=== PATIENT | female | born 1945 | race Caucasian/White ===

== ENCOUNTER 2018-06-24 20:53 | Observation (INO) ==
[2018-06-24 21:30] LABS: INFLUENZA A NEGATIVE (NEGATIVE); INFLUENZA B NEGATIVE (NEGATIVE)
[2018-06-24] MEDS ORDERED: NS 1,000 ML IV ONE (22:11)
[2018-06-24 22:59] LABS: BASO# 0.02 X1000 (0.0-0.2); BASO% 0.2 % (0.0-0.8); EOS# 0.04 X1000 (0.0-0.7); EOS% 0.4 % (0.0-10.0); HEMATOCRIT 39.4 % (37.0-47.0); HEMOGLOBIN 13.8 g/dL (12.0-16.0); IMM GRAN# 0.03 X1000 (0.0-0.04); IMM GRAN% 0.3 % (0.0-0.5); LYMPH% 8.8 % (20.5-51.1); MCH 30.6 PG (27-31); MCV 87.4 FL (81-99); MONO% 7.8 % (1.7-9.3); MPV 9.4 FL (7.4-10.4); NEUT# 8.46 X1000 (1.4-6.5); NEUT% 82.5 % (42.2-75.2); PLT 223 X1000 (130-400); RBC 4.51 XMIL (4.2-5.4); RDW 15.5 % (11.5-14.5); WBC 10.25 X1000 (4.8-10.8)
[2018-06-24 23:23] LABS: AGAP 16; ALBUMIN 3.7 g/dL (3.5-5.0); ALKALINE PHOSPHATASE 81 U/L (32-104); BUN 9 mg/dL (8-22); CALCIUM 8.5 mg/dL (8.8-10.2); CHLORIDE 91 mmol/L (98-107); COSMO 254; CREATININE 0.6 mg/dL (0.5-0.9); ESTIMATED GFR > 60; GLUCOSE 129 mg/dL (70-104); GOT 16 U/L (10-30); GPT < 5 U/L (10-36); POTASSIUM 4.1 mmol/L (3.5-5.1); SODIUM 126 mmol/L (136-145); TCO2 19 mmol/L (25-35); TOTAL PROTEIN 6.8 g/dL (6.3-8.3)
[2018-06-24 23:24] LABS: URINE SOURCE CATH
[2018-06-24 23:25] LABS: BILIRUBIN URINE NEGATIVE (NEGATIVE); BLOOD URINE NEGATIVE (NEGATIVE); CLARITY CLEAR (CLEAR); COLOR YELLOW; GLUCOSE URINE NEGATIVE (NEGATIVE); KETONE URINE 1+(Small) mg/dL (NEGATIVE); LEUKOCYTES URINE TRACE (NEGATIVE); NITRITE URINE NEGATIVE (NEGATIVE); PROTEIN URINE NEGATIVE (NEGATIVE); URINE BACTERIA 1+ /HFP; URINE EPITHELIAL CELLS <10 /HPF (<10); URINE RBC <10 /HPF (<10); URINE WBC <10 /HPF (<10); UROBILINOGEN URINE NORMAL
[2018-06-25] MEDS ORDERED: KENALOG 0.1% OINTMENT TOP ONE (01:05)
[2018-06-25] MEDS ORDERED: ZOFRAN IV PRN (01:09)
[2018-06-25] MEDS ORDERED: TYLENOL PO PRN (01:09)
[2018-06-25] MEDS ORDERED: NS 1,000 ML IV ONE (01:11)
--- NOTE | 2018-06-25 01:14 | PROVIDER DOCUMENTATION ---
This chart was entered by Shayy Dutta Scribe, acting as scribe for Patrice Sinclair MD. HPI-Syncope/Dizziness - General Chief Complaint: Near Syncope Stated Complaint: FEVER, SHAKES Time Seen by Provider: 06/24/18 21:23 Source: patient, family Allergies/Adverse Reactions: Patient Allergies Allergy/AdvReac Type Severity Reaction Status Date / Time No Known Allergies Allergy Verified 06/24/18 21:02 - History of Present Illness-Syncope/Dizzy Nature of Presenting Problem: pt is a 73 yr old female presenting with complaint of weakness, dizziness and near syncope. pt reports pt became very hot and sweaty to touch during event, upon arrival pt reports weakness/fatigue but denies any other complaint. pt tremulous throughout exam, family states pt has medication induced tremors. Recently Seen Here or By Another Healthcare Provider: No - Dizziness Severity in ED: reports: moderate Dizziness Related Current/Associated Symptoms: reports: weakness, lightheaded, dizzy, other (hot, diaphoretic) Any recent trauma/injury?: reports: none Modifying Factors: improves with: nothing Patient usually:: reports: uses a walker Review of Systems - Adult - REVIEW OF SYSTEMS - ADULT Constitutional: reports: fatique Eyes: denies: blurred vision, double vision Ears, Nose, Mouth & Throat: reports: no symptoms reported Cardiovascular: denies: chest pain, palpitations, syncope Respiratory: denies: cough, shortness of breath Gastrointestinal: denies: nausea, vomiting Genitourinary: reports: no symptoms reported Musculoskeletal: reports: no symptoms reported, muscle weakness Integumentary: reports: no symptoms reported Neurological: reports: dizziness/vertigo. denies: headache/migraines, numbness Psychiatric: reports: no symptoms reported Endocrine: reports: no symptoms reported Hematologic/Lymphatic: reports: no symptoms reported Allergic/Immunologic: reports: no symptoms reported All Other Systems: Reviewed and Negative Past History - Adult - PAST MEDICAL HISTORY-ADULT Review of Records: reports: Old Records Reviewed, Nursing Assessment Review, Medications Reviewed, Social history reviewed & non-contributory. Major Childhood Illnesses: reports: denies history Cardiovascular: reports: denies history Respiratory: reports: denies history Gastrointestinal: reports: denies history Obstetrical/Gynecological: reports: denies history Genitourinary: reports: denies history Musculoskeletal: reports: arthritis Neurological: reports: CVA Endocrine/Immune: reports: denies history Other Conditions: reports: denies history - PRIOR SURGERIES/PROCEDURES Surgical/Procedure History: reports: none - IMMUNIZATION STATUS Childhood Immunizations: See Nurse Assessment Flu Vaccine: See Nurse Assessment - FAMILY HISTORY Family History: reviewed, not pertinent - SOCIAL HISTORY Smoking: non-smoker Substance Use: denies Living Situation: family Physical Exam-General - PHYSICAL EXAM-ADULT Initial Vital Signs Reviewed: Yes - CONSTITUTIONAL General Appearance: alert, no apparent distress, other (tremulous) - EYES Eyes: PERRL/EOMI - HEAD, EARS, NOSE, MOUTH & THROAT HENMT: normocephalic/atraumatic, moist mucous membranes, normal ENT inspection - NECK Neck: non-tender, full range of motion, supple, normal inspection - RESPIRATORY Respiratory: chest non-tender, lungs clear, normal breath sounds - CARDIOVASCULAR Cardiovascular: normal peripheral pulses, no edema, tachycardia - GASTROINTESTINAL (ABDOMEN) Abdominal Exam: normal bowel sounds, non tender, soft - LYMPHATIC Lymphatic: no adenopathy - MUSCULOSKELETAL Back Exam: normal inspection, no CVA tenderness, no vertebral tenderness Extremity: normal range of motion, non-tender, normal gait, normal inspection - SKIN Integumentary: normal color, normal turgor, warm/dry - NEUROLOGIC Neurologic: grossly normal, no motor/sensory deficits - PSYCHIATRIC Psych/Mental Status: normal mood/affect Progress - PLAN OF CARE/RESULTS Progress/Plan/Lab Results: Vital Signs - 8 hr 06/24/18 20:57 06/24/18 21:40 06/24/18 21:51 Temperature 98.3 F Pulse Rate 129 H 118 H 117 H Respiratory Rate 20 17 20 Blood Pressure 129/56 132/96 O2 Sat by Pulse Oximetry 98 100 06/25/18 00:07 06/25/18 00:41 Temperature Pulse Rate 110 H 109 H Respiratory Rate 17 Blood Pressure 130/70 135/83 O2 Sat by Pulse Oximetry 97 100 Laboratory Results - last 24 hr 06/24/18 06/24/18 06/24/18 21:03 21:10 22:40 WBC RBC Hgb Hct MCV MCH MCHC RDW Std Deviation Plt Count MPV Immature Gran % (Auto) Neut % (Auto) Lymph % (Auto) Screven % (Auto) Eos % (Auto) Baso % (Auto) Immature Gran # (Auto) Neut # (Auto) Lymph # (Auto) Screven # (Auto) Eos # (Auto) Baso # (Auto) Sodium Potassium Chloride Carbon Dioxide Anion Gap BUN Creatinine Estimated GFR/1.73 m2 BUN/Creatinine Ratio Glucose POC Glucose 129 H Calculated Osmolality Calcium Total Bilirubin AST ALT Alkaline Phosphatase Total Protein Albumin Globulin Albumin/Globulin Ratio Urine Source Cancelled Urine Color Cancelled Urine Clarity Urine Turbidity Cancelled Urine pH Cancelled Ur Specific Gulliver Cancelled Urine Protein Cancelled Ur Glucose (Stick) Cancelled Urine Ketones Ur Ketones (Stick) Cancelled Urine Blood Cancelled Urine Nitrite Cancelled Urine Bilirubin Cancelled Urine Urobilinogen Urobilinogen Dipstick Cancelled Urine Leukocytes Cancelled Urine WBC (Auto) Cancelled Urine RBC (Auto) Cancelled U Epithel Cells (Auto) Cancelled Urine Bacteria (Auto) Cancelled Urine Microscopic RBC Urine WBC Urine Microscopic WBC Ur Epithelial Cells Urine Bacteria Urine Glucose Influenza A (Rapid) NEGATIVE Influenza B (Rapid) NEGATIVE 06/24/18 06/24/18 06/24/18 22:40 22:44 22:44 WBC 10.25 RBC 4.51 Hgb 13.8 Hct 39.4 MCV 87.4 MCH 30.6 MCHC 35.0 RDW Std Deviation 15.5 H Plt Count 223 MPV 9.4 Immature Gran % (Auto) 0.3 Neut % (Auto) 82.5 H Lymph % (Auto) 8.8 L Screven % (Auto) 7.8 Eos % (Auto) 0.4 Baso % (Auto) 0.2 Immature Gran # (Auto) 0.03 Neut # (Auto) 8.46 H Lymph # (Auto) 0.90 L Screven # (Auto) 0.80 H Eos # (Auto) 0.04 Baso # (Auto) 0.02 Sodium 126 L Potassium 4.1 Chloride 91 L Carbon Dioxide 19 L Anion Gap 16 BUN 9 Creatinine 0.6 Estimated GFR/1.73 m2 > 60 BUN/Creatinine Ratio 15 Glucose 129 H POC Glucose Calculated Osmolality 254 Calcium 8.5 L Total Bilirubin 0.30 AST 16 ALT < 5 L Alkaline Phosphatase 81 Total Protein 6.8 Albumin 3.7 Globulin 3.0 Albumin/Globulin Ratio 1.0 Urine Source CATH Urine Color YELLOW Urine Clarity CLEAR Urine Turbidity Urine pH 9.0 Ur Specific Gulliver 1.010 Urine Protein NEGATIVE Ur Glucose (Stick) Urine Ketones 1+(Small) A Ur Ketones (Stick) Urine Blood NEGATIVE Urine Nitrite NEGATIVE Urine Bilirubin NEGATIVE Urine Urobilinogen NORMAL Urobilinogen Dipstick Urine Leukocytes Urine WBC (Auto) Urine RBC (Auto) U Epithel Cells (Auto) Urine Bacteria (Auto) Urine Microscopic RBC <10 Urine WBC TRACE A Urine Microscopic WBC <10 Ur Epithelial Cells <10 Urine Bacteria 1+ Urine Glucose NEGATIVE Influenza A (Rapid) Influenza B (Rapid) Orders Category Date Time Status Admit - [facility] Routine AdmDCTranf 06/25/18 01:09 Active Activity - Bed Rest with BRP ORDERED Care 06/25/18 01:09 Active Call Admitting on Arrival AT ADMISSION Care 06/25/18 01:10 Active Neurological Check Q6H Care 06/25/18 01:09 Active Saline Loc NOW Care 06/24/18 22:12 Active Vital Signs Order ROUTINE Care 06/25/18 01:09 Active Heart Healthy Diet Diet 06/25/18 01:10 Active CHEST-2 VIEWS [RAD] Stat Exams 06/24/18 22:[address] HEAD W/O CONTRAST [CT] Stat Exams 06/24/18 22:12 Taken CBC WITH ELECTRONIC DIFF [HEME] Stat Lab 06/24/18 22:44 Completed COMPREHENSIVE METABOLIC PANEL [CHEM] Stat Lab 06/24/18 22:[address] Stat Lab 06/24/18 21:[address] W/POSS RFLX CULT [URINALYSIS] Stat Lab 06/24/18 22:40 Completed URINE CULTURE [RM] Routine Lab 06/24/18 23:26 Ordered 0.9% Sodium Chloride Inj [Ns] 1,000 ml Med 06/25/18 01:11 Active IV 75 mls/hr 0.9% Sodium Chloride Inj [Ns] 1,000 ml Med 06/24/18 22:11 Discontinued IV 999 mls/hr Acetaminophen [Tylenol] Med 06/25/18 01:09 Ordered 650 mg PO Q6H PRN PRN Ondansetron [Zofran] Med 06/25/18 01:09 Ordered 4 mg IV Q4H PRN PRN Triamcinolone 0.1% Oint [Kenalog 0.1% Ointment] Med 06/25/18 01:05 Discontinued 2 gm TOP NOW ONE EKG [EKG] Stat Ther 06/24/18 22:12 Ordered Transfer/Admit Order [TRANSFER] Routine Transfer 06/25/18 01:11 Ordered A/P: hyponatremia and weakness. Will admit to hospitalist service. started NS @ 75 mL hr Result Diagrams: 06/24/18 22:44 06/24/18 22:44 - CONSULTS/PCP/HOSPITALIST Notification #1 *Consult/PCP/Hospitalist*: Dr ríos was called 3 times no answer Time Discussed: 01:14 Consult Disposition: Admit Departure - Departure Date of Disposition Decision: 06/25/18 Time of Disposition Decision: 01:13 DIAGNOSIS: Hyponatremia, Weakness Disposition: ADMITTED INPATIENT 09 Certified Medical Emergency: Emergent Condition: Stable Additional Freetext Instructions: We have examined and treated you today on an emergency basis only. This was not a substitute for, or an effort to provide, complete medical care. In most cases , you must let your doctor check you again. Tell your doctor about any new or lasting problems. We cannot recognize and treat all injuries or illnesses in one Emergency Department visit. If you had special tests, such as X-rays or CT scans, will be reviewed by radiologist and will call you if there are any new suggestions Follow up with primary care provider in 1 to 2 days if no improvement. If you do not have a primary care provider, you need to choose one as soon as possible. Take medicines as prescribed. Monitor for any side effects or adverse events from medications. If any side effect, adverse event or rash develops, or if you suspect any other adverse reaction to the medication, then discontinue the medication immediately and contact clinic /PCP or go to the nearest ER. Narcotic meds / sedative meds instruction - patent advised not to drive, operate any machinery or go into water after taking meds as it may impair mental ability to react to the situation in an appropriate manner. Continue other current medicines. Follow up with PCP within 24-48 hours, or sooner if symptoms worsen or fail to improve. Patient / guardian verbalizes understanding of treatment plan, medication, and side effects and agrees with treatment plan. Patient leaves ER in stable condition and ambulatory state. Return to ER as needed. Discharge instructions reviewed verbally and given to patient in written form. Follow up with primary Referrals and Follow-Ups: Jaci Britt MD [Primary Care Provider] - - Critical Care Note This patient required my direct & personal management of CC.: No Attestation - Physician/ SUSAN Attestation Patient care was provided by Advanced Practice Provider:: No The physician spent face to face time with patient:: Yes Advanced Practice Provider documentation review:: Supervising physician onsite and consulted in the evaluation and care of this patient. The physician did have a face to face encounter with the patient. This chart was documented by the indicated scribe, (Shayy Dutta, Tammie) and accurately reflects the services I performed and decisions made by me, Patrice Sinclair MD, as attested by the provider's signature.
[2018-06-25] MEDS ORDERED: NS 1,000 ML IV SCH (02:44)
--- NOTE | 2018-06-25 07:36 | Diag Imaging Result Doc PS360 ---
CT HEAD W/O CONTRAST - 06/24/2018 INDICATION: syncope COMPARISON: None FINDINGS: There is extensive patient motion artifact. The ventricles and sulci are normal in size and contour. No intracranial mass or hemorrhage. There is advanced periventricular white matter chronic microvascular disease. The skull is intact. The sinuses, mastoids, and middle ears are clear. IMPRESSION: Advanced cerebral white matter chronic microvascular disease. No acute process. This exam was performed using automated exposure control, adjustment of mA or kV according to patient size, and/or use of iterative reconstruction technique Electronically signed by Lloyd Pacheco 06/25/2018 7:34 AM
[2018-06-25 08:00] LABS: AGAP 13; BUN 6 mg/dL (8-22); CALCIUM 8.2 mg/dL (8.8-10.2); CHLORIDE 100 mmol/L (98-107); COSMO 267; CREATININE 0.4 mg/dL (0.5-0.9); ESTIMATED GFR > 60; GLUCOSE 89 mg/dL (70-104); SODIUM 135 mmol/L (136-145); TCO2 23 mmol/L (25-35)
--- NOTE | 2018-06-25 08:37 | Diag Imaging Result Doc PS360 ---
EXAM: CHEST-2 VIEWS HISTORY: Syncope TECHNIQUE: PA and Lateral chest x-ray COMPARISON: None. FINDINGS: The cardiomediastinal silhouette is within normal limits. The pulmonary vasculature is not congested. No infiltrate, effusion, or pneumothorax is appreciated. There are prominent interstitial markings and evidence of prior granulomatous disease. There is a cartilaginous lesion proximal right humerus. There is thoracic spondylosis. IMPRESSION: Prominent interstitial markings bilaterally with evidence of prior granulomatous disease. Electronically signed by Jodi House 06/25/2018 8:35 AM
[2018-06-25 12:47] LABS: AGAP 10; BUN 7 mg/dL (8-22); CALCIUM 7.9 mg/dL (8.8-10.2); CHLORIDE 100 mmol/L (98-107); COSMO 262; CREATININE 0.3 mg/dL (0.5-0.9); ESTIMATED GFR > 60; GLUCOSE 94 mg/dL (70-104); POTASSIUM 3.7 mmol/L (3.5-5.1); SODIUM 132 mmol/L (136-145); TCO2 22 mmol/L (25-35)
[2018-06-25] MEDS: NORCO-7.5 PO SCH ×2 (13:04→21:58)
[2018-06-25] MEDS: KLOR-CON PO SCH (13:05)
[2018-06-25] MEDS: NAMENDA PO SCH (13:05)
[2018-06-25] MEDS: DEPAKOTE SPRINKLE PO SCH ×2 (13:05→16:09)
[2018-06-25] MEDS: MYSOLINE PO SCH ×2 (13:05→21:58)
[2018-06-25] MEDS: ARICEPT PO SCH (13:05)
--- NOTE | 2018-06-25 15:16 | HISTORY AND PHYSICAL ---
PRIMARY CARE PHYSICIAN: Dr. Britt. CHIEF COMPLAINT: Dizziness, weakness, fatigue, and near syncope. HISTORY OF PRESENTING ILLNESS: This is a 73-year-old female who presents to [facility] ER with family stating that she had had increased weakness, dizziness, fatigue, and had been diaphoretic and had a near syncopal episode at home. Her workup in the emergency room showed sodium of 126. Influenza A and B were both negative. She was afebrile. Chest x-ray showed some prominent interstitial markings bilaterally with evidence of a prior granulomatous disease. CT of the head showed advanced cerebral white matter, chronic microvascular disease but no acute process. She states that she saw her primary care physician about a month ago, and that they changed her Lasix from daily to every other day, but she will be admitted for further evaluation and treatment. PAST MEDICAL HISTORY: CVA that caused some memory deficits also, but no other medical issues. PAST SURGICAL HISTORY: Bilateral knee arthroscopy. FAMILY HISTORY: Reviewed and noncontributory. SOCIAL HISTORY: She currently lives with family. Denies any tobacco, alcohol or illicit drug use. ALLERGIES: She has no known drug allergies. HOME MEDICATIONS: We will hold the following: Lasix 20 mg p.o. every other day and methotrexate IM as directed. We will continue her divalproex sodium 125 mg p.o. t.i.d., donepezil 5 mg p.o. every morning, Krypton 7.5 one p.o. b.i.d., Namenda 10 mg p.o. daily, mirtazapine 45 mg p.o. at bedtime, olanzapine 5 mg p.o. at bedtime, potassium 10 mEq p.o. daily, and Mysoline 50 mg p.o. b.i.d. LABORATORY DATA: White blood cell count of 10.25, hemoglobin of 13.8, hematocrit 39.4, and platelets 223,000. Sodium was 126, potassium 4.1, chloride 91, CO2 19, BUN of 9, creatinine 0.6, and glucose 129. This morning her sodium is up to 135. Urinalysis was negative except for 1+ bacteria. Urine osmolality at 465. Urine random sodium at 77. Valproic acid level was 31.70. Influenza A and B were both negative. Chest x-ray showed prominent interstitial markings bilaterally with evidence of prior granulomatous disease. CT of the head showed advanced cerebral white matter, chronic microvascular disease but no acute process. REVIEW OF SYSTEMS: She denied any fever, chills, or blurred vision. She was positive for dizziness, weakness, fatigue, diaphoresis, and near syncopal episode. She denied any chest pain, coughing, or shortness of breath. She denied any abdominal pain, constipation, diarrhea, burning or hurting with urination. PHYSICAL EXAMINATION: VITAL SIGNS: On arrival, she had temperature of 98.3 degrees, pulse 129, respirations 20, blood pressure 129/56, and saturating 98% on room air. GENERAL: This is a 73-year-old female who is lying in the bed. She is noted to have a tremor to her bilateral upper extremities, but answers all questions appropriately. HEENT: Normocephalic, atraumatic. Normal ENT inspection. Oropharynx and nares are clear. EYES: Pupils are equal, round, and reactive to light and accommodation. Extraocular movements are intact. NECK: Normal inspection. Normal range of motion. LUNGS: Clear to auscultation bilaterally with equal lung expansion and chest wall movement. HEART: Regular rate and rhythm. No murmurs, rubs, or gallops. ABDOMEN: Soft, nontender, and nondistended. Bowel sounds are present x4 quadrants. MUSCULOSKELETAL: She has 5/5 strength x4 extremities. Again, she is noted to have tremors to bilateral upper extremities. NEUROLOGICAL: The cranial nerves 2-12 appear grossly intact. ASSESSMENT: 1. Hyponatremia. 2. Generalized weakness secondary to #1. PLAN: She was admitted to the medical unit and placed on neuro checks q.6 hours for 24 hours, and placed on telemetry healthy heart diet. We checked the urine sodium and urine osmolality. We will hold her diuretic, and continue her other medications. She was receiving normal saline at 75 mL an hour, but we have stopped that now that her sodium has returned to normal limits. Further orders after being seen by attending. Dictated by DAVID Merlos for Jeffery Parker MD cc: MD Babs Ames CRNP Alexis R. Penot, MD
--- NOTE | 2018-06-25 19:18 | HISTORY AND PHYSICAL ---
ADDENDUM: Patient presented with confusion. She also had a low sodium. She had very hot and sweaty, she had weakness, dizziness. Her sodium when she first came in was 126, checked later that morning was 135, repeat is 132. Her exam is unremarkable except for some shaking tremulousness, which I think is at her baseline. She does have dementia although I do not think the family is completely cognizant of that. I guess she has been controlled on medications. I guess they feel that it has been cured but any ways she was admitted. She is doing better. We are going to watch her, rule out CHF check a TSH level, cortisol level and follow closely. I think this is likely related to diuretic, I will check urine electrolytes and follow closely. DISPOSITION: Pending her clinical status. This is a [id number] encounter note with Babs Ramirez. cc: Jeffery Parker MD
[2018-06-25] MEDS ORDERED: ZYPREXA PO SCH (21:00)
[2018-06-25] MEDS ORDERED: REMERON PO SCH (21:00)
[2018-06-26 07:37] LABS: AGAP 11; BUN 7 mg/dL (8-22); CALCIUM 7.9 mg/dL (8.8-10.2); CHLORIDE 101 mmol/L (98-107); COSMO 265; CREATININE 0.4 mg/dL (0.5-0.9); ESTIMATED GFR > 60; GLUCOSE 82 mg/dL (70-104); SODIUM 134 mmol/L (136-145); TCO2 22 mmol/L (25-35)
[2018-06-26 07:42] LABS: BASO# 0.02 X1000 (0.0-0.2); BASO% 0.4 % (0.0-0.8); EOS% 6.7 % (0.0-10.0); HEMATOCRIT 37.3 % (37.0-47.0); HEMOGLOBIN 12.3 g/dL (12.0-16.0); LYMPH# 0.88 X1000 (1.2-3.4); LYMPH% 19.8 % (20.5-51.1); MCH 30.5 PG (27-31); MCV 92.6 FL (81-99); MONO# 0.96 X1000 (0.11-0.59); MONO% 21.6 % (1.7-9.3); MPV 10.1 FL (7.4-10.4); NEUT# 2.29 X1000 (1.4-6.5); NEUT% 51.5 % (42.2-75.2); PLT 163 X1000 (130-400); RBC 4.03 XMIL (4.2-5.4); RDW 16.4 % (11.5-14.5); WBC 4.45 X1000 (4.8-10.8)
[2018-06-26 08:16] LABS: EOS 2 % (1-10); LYMPHS 32 % (21-51); MONO 9 % (1-9); SEGS 57 % (42-75)
[2018-06-26] MEDS: DEPAKOTE SPRINKLE PO SCH ×2 (10:16→13:33)
[2018-06-26] MEDS: ARICEPT PO SCH (10:17)
[2018-06-26] MEDS: KLOR-CON PO SCH (10:17)
[2018-06-26] MEDS: MYSOLINE PO SCH (10:17)
[2018-06-26] MEDS: NAMENDA PO SCH (10:17)
[2018-06-26] MEDS: NORCO-7.5 PO SCH (10:17)
--- NOTE | 2018-06-26 13:43 | ECHO REPORT ---
ORDER DATE: 06/25/2018 REASON FOR THIS STUDY: CHF. REQUESTING PHYSICIAN: Jeffery Parker MD - Hospitalist. INTERPRETING PHYSICIAN: Conrado Schwartz MD M-MODE MEASUREMENTS: Left ventricle end diastole: 4.2 cm. Left ventricle end systole: 2.6 cm. Posterior wall: 1.2 cm. Interventricular septum: 1.2 cm. Left atrium: 3.6 cm. Aortic root: 3.1 cm. SUMMARY OF 2-DIMENSIONAL IMAGIN. The left ventricular function is normal with an ejection fraction of 66%. There is no wall motion abnormality. 2. The aortic valve shows sclerosis of the cusp without stenosis. Color flow mapping is unremarkable. 3. The mitral annulus shows moderate calcification. Color flow mapping is unremarkable. 4. Pulse wave Doppler of mitral inflow shows reversal of the E and the A ratio. Ratio is 0.7. 5. Tissue Doppler of septal and lateral mitral annulus averages 5 cm. 6. There is impaired left ventricular relaxation. 7. The pulmonary venous flow is normal. 8. The tricuspid valve is unremarkable. 9. The pulmonary pressure is estimated at 28 mmHg. 10.The inferior vena cava is not dilated. 11.The pulmonic valve is normal. 12.The atria show mild enlargement of the left atrium. Otherwise, unremarkable. 13.There is no pericardial effusion and no sign of thrombus. Clinical correlation is recommended. cc: MD Jeffery Solo MD
[2018-06-26 14:30] VITALS: BP 111/75
--- NOTE | 2018-06-26 21:11 | DISCHARGE SUMMARY ---
ADMISSION DATE: 06/25/2018 DISCHARGE DATE: 06/26/2018 DISCHARGE DIAGNOSIS: Hyponatremia, related either to diuretic versus possible syndrome of inappropriate antidiuretic hormone secretion related to psychiatric medications. HOSPITAL COURSE: The patient presented with confusion and a sodium of 126. The patient was placed in observation for hyponatremia. 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 Her urine osmolarity was 465 and her urine sodium was 77. I recommend a trial of taking her off her diuretic. We can use Aldactone which I gave her a low- dose version of, if she has still had some lower extremity edema. Echocardiogram revealed a normal EF, 66%, so she does not have CHF. Her TSH, I believe, was normal. Her cortisol level was normal, too, for morning. In any case, the patient was felt stable for discharge. I advised them to stop her Lasix and use the Aldactone only if she required it. This was educated to 2 different family members with that. She was stable for discharge. DISCHARGE MEDICATIONS: Remeron 45; olanzapine 5; Depakote 125 t.i.d.; Aricept 5 ; Souris 1 b.i.d.; Namenda 10 daily; Klor-Con 10 daily; Mysoline 50 b.i.d.; methotrexate, I am not sure how often she takes it; Aldactone 12.5 daily. DISCHARGE INSTRUCTIONS: She needs followup with Dr. Britt in 1-2 weeks. I would repeat her sodium and urine electrolytes. If she is still elevated, this may be truly SIADH and she needs her psychiatric medications adjusted, but Dr. Britt will sort it out at followup. cc: MD Jaci Don MD [facility]
== END 2018-06-26 16:20 | disposition home or self-care (01) ==
LOC: P.ED 20:53 → P.MEDSURG 20:53
PROVIDERS: ATTEND Internal Medicine
CPT/HCPCS: 36415; 70450; 71020; 71046; 80048; 80053; 80164; 80165; 81001; 82533; 82948; 83930; 83935; 84300; 84443; 85025; 87088; 87275; 87276; 87804; 93005; 93306; 96360; 96361; 99285; A9270; J7030; XXXXX